=== PATIENT | male | born 1985 | race Caucasian/White ===

== ENCOUNTER 2017-05-31 14:31 | Emergency (ER) | payer BC ==
[~2017-05-31] VITALS: Ht 180.3 cm; Wt 81.6 kg
[2017-05-31] MEDS ORDERED: LIDOCAINE VISCOUS 2% UD 15 ML UDC ONE (14:51)
[2017-05-31] MEDS ORDERED: IBUPROFEN 600 MG TABLET PO ONE ×2 (14:52→15:00)
[2017-05-31] MEDS ORDERED: TDAP [DIPH/PERTUSSIS/TET] 0.5 ML VIAL IM ONE ×2 (14:52→15:00)
[2017-05-31] MEDS ORDERED: HYDROCODONE/APAP 5/325MG 1 EACH TABLET ONE (14:52)
[2017-05-31] MEDS ORDERED: LIDOCAINE VISCOUS 2% UD 15 ML UDC PO ONE (15:00)
[2017-05-31] MEDS ORDERED: HYDROCODONE/APAP 5/325MG 1 EACH TABLET PO ONE (15:00)
[2017-05-31 16:26] VITALS: BP 116/52
== END 2017-05-31 16:27 | disposition home or self-care (01) ==
LOC: ER 14:35
DX: S80.812A Abrasion, left lower leg, initial encounter (principal); S80.811A Abrasion, right lower leg, initial encounter; S60.511A Abrasion of right hand, initial encounter; S60.512A Abrasion of left hand, initial encounter; Z90.89 Acquired absence of other organs; W19.XXXA Unspecified fall, initial encounter; Y93.89 Activity, other specified; Y92.89 Other specified places as the place of occurrence of the external cause; Y99.8 Other external cause status
CPT/HCPCS: 90715; A4606; A6402; Z7610

== ENCOUNTER 2017-06-02 12:16 | Emergency (ER) | payer BC ==
[~2017-06-02] VITALS: Ht 180.3 cm; Wt 81.6 kg
[2017-06-02 12:19] VITALS: BP 128/80
== END 2017-06-02 12:43 | disposition home or self-care (01) ==
LOC: ER 12:18
DX: L03.116 Cellulitis of left lower limb (principal); L03.115 Cellulitis of right lower limb; Z90.89 Acquired absence of other organs; F17.200 Nicotine dependence, unspecified, uncomplicated
CPT/HCPCS: A4606; Z7610